=== PATIENT | female | born 1965 | race Caucasian/White ===

== ENCOUNTER → 2020-06-13 09:47 | Outpatient (BNVA) | payer BC, SELFPAY | PROVIDERS: Visit Provider Family Medicine | DX: R25.2 Cramp and spasm (principal); Z13.6 Encounter for screening for cardiovascular disorders; K21.9 Gastro-esophageal reflux disease without esophagitis | CPT/HCPCS: 80053; 80061; 85025 ==

== ENCOUNTER → 2020-07-10 10:19 | Outpatient (BNVA) | payer BC, SELFPAY | PROVIDERS: Visit Provider Family Medicine | DX: Z01.419 Encounter for gynecological examination (general) (routine) without abnormal findings (principal); L57.0 Actinic keratosis; J01.10 Acute frontal sinusitis, unspecified; Z12.31 Encounter for screening mammogram for malignant neoplasm of breast; Z68.28 Body mass index [BMI] 28.0-28.9, adult; Z71.89 Other specified counseling | CPT/HCPCS: 87070; 87205 ==

== ENCOUNTER 2020-09-08 10:12 | Outpatient (CLI) | payer BC, SELFPAY ==
--- NOTE | 2020-09-08 10:30 | MM_ITS ---
WS: [id number] BILATERAL DIGITAL SCREENING MAMMOGRAPHY WITH CAD CLINICAL INFORMATION: screening mammogram HISTORY: Screening mammogram. No current complaints. COMPARISON: None. TECHNIQUE: Bilateral CC and MLO views. FINDINGS: Scattered fibroglandular densities bilaterally. No suspicious focal mass, asymmetry, calcifications, or architectural distortion. No evidence of malignancy. MM/[place] [id number] IMPRESSION: BI-RADS: 1-Negative FOLLOW UP: 1 Year Follow-up Recommend return to annual screening mammography.
== END 2020-09-08 10:13 | disposition home or self-care (01) ==
LOC: RADSHAW 10:15
PROVIDERS: PCP Family Medicine; Visit Provider Family Medicine
DX: Z12.31 Encounter for screening mammogram for malignant neoplasm of breast (principal)
CPT/HCPCS: 77067

== ENCOUNTER 2022-04-05 10:31 | Outpatient (CLI) | payer BC, SELFPAY ==
--- NOTE | 2022-04-05 10:42 | XR_ITS ---
WS: [id number] Exam: XR knee LT 3V* [id number] Date/Time of Exam: 04/05/2022 10:42 AM Reason For Exam: chronic left knee pain There is moderate degenerative change at the medial joint compartment and the patellofemoral joint. N o fracture or dislocation. No significant joint effusion. Spurring of the posterior patella. XR/XR knee LT 3V* [id number] IMPRESSION: 1. Moderate degenerative changes involving the patellofemoral joint and the med ial joint compartment. 2. No acute fracture or joint effusion.
== END 2022-04-05 10:32 | disposition home or self-care (01) ==
LOC: RAD 10:32
PROVIDERS: PCP Family Medicine; Visit Provider Family Medicine
DX: M25.562 Pain in left knee (principal); G89.29 Other chronic pain
CPT/HCPCS: 73562

== ENCOUNTER 2022-04-21 09:28 | Outpatient (RCR) | payer BC, SELFPAY | END 2022-04-21 23:59 | disposition home or self-care (01) | LOC: SPT 09:28 | PROVIDERS: PCP Family Medicine; Visit Provider Family Medicine | DX: M25.362 Other instability, left knee (principal) | CPT/HCPCS: 97161 ==

== ENCOUNTER 2022-04-22 06:00 | Outpatient (RCR) | payer BC, SELFPAY | END 2022-05-21 23:59 | disposition home or self-care (01) | LOC: SPT 06:00 | PROVIDERS: PCP Family Medicine; Visit Provider Family Medicine | DX: M25.362 Other instability, left knee (principal) | CPT/HCPCS: 97110 ==

== ENCOUNTER → 2022-09-28 08:48 | Outpatient (BNVA) | payer BC, SELFPAY | PROVIDERS: PCP Family Medicine; Visit Provider Family Medicine | DX: Z13.6 Encounter for screening for cardiovascular disorders (principal) | CPT/HCPCS: 80053; 80061; 84443; 85025 ==

== ENCOUNTER 2022-09-28 11:00 | Outpatient (CLI) | payer BC, SELFPAY ==
--- NOTE | 2022-09-28 11:30 | XRR_ITS ---
PROCEDURE INFORMATION: Exam: XR Lumbosacral Spine Exam date and time: 09/28/2022 11:50 AM Age: 56 years old Clinical indication: Prior surgery; Surgery type: Hystero; Patient HX: Low back pain chronic 1993 injury; Additional info: Acute low back TECHNIQUE: Imaging protocol: Radiologic exam of the lumbosacral spine. Views: 2 or 3 views. COMPARISON: No relevant prior studies available. FINDINGS: Bones/joints: There is grade 1 spondylolisthesis L4-L5 that is likely longstanding. There are moderate-advanced degenerative changes L5-S1 with disc space narrowing endplate sclerosis and facet arthrosis. There are less pronounced degenerative changes at L4-L5. Remaining lumbar disc levels are unremarkable. There are anterior degenerative endplate changes in the lower thoracic spine partially visualized. Soft tissues: Unremarkable. XR/XR lumbar spine 2-3V* [id number] IMPRESSION: 1. Degenerative changes lower lumbar spine most pronounced at L5-S1. Additional anterior degenerative endplate changes lower thoracic spine. 2. Grade 1 spondylolisthesis L4-L5.
== END 2022-09-28 11:01 | disposition home or self-care (01) ==
LOC: RAD 11:01
PROVIDERS: PCP Family Medicine; Visit Provider Family Medicine
DX: M54.50 Low back pain, unspecified (principal); M43.16 Spondylolisthesis, lumbar region
CPT/HCPCS: 72100

== ENCOUNTER 2022-10-05 09:00 | Outpatient (CLI) | payer BC, SELFPAY ==
--- NOTE | 2022-10-05 09:07 | MM_ITS ---
WS: [id number] BILATERAL SCREENING DIGITAL TOMOSYNTHESIS MAMMOGRAM WITH CAD HISTORY: screening mammogram COMPARISON: 09/08/2020 Bilateral CC and MLO views with tomosynthesis and synthetic mammography submitted. Computer aided det ection analyzed. Breast composition: The breasts are heterogeneously dense, which may obscure small masses. No suspici ous masses, microcalcifications or architectural distortion. MM/[place] [id number] IMPRESSION: BI-RADS: 1-Negative FOLLOW UP: 1 Year Follow-up
== END 2022-10-05 09:01 | disposition home or self-care (01) ==
LOC: RAD 09:00
PROVIDERS: PCP Family Medicine; Visit Provider Family Medicine
DX: Z12.31 Encounter for screening mammogram for malignant neoplasm of breast (principal)
CPT/HCPCS: 73630; 77063; 77067; 80053; 80061; 84443; 85025

== ENCOUNTER 2022-12-08 11:58 | Outpatient (RCR) | payer BC, SELFPAY | END 2022-12-19 23:59 | disposition home or self-care (01) | LOC: SPT 11:58 | PROVIDERS: PCP Family Medicine; Visit Provider Family Medicine | DX: M54.42 Lumbago with sciatica, left side (principal); M54.41 Lumbago with sciatica, right side | CPT/HCPCS: 97110; 97161 ==

== ENCOUNTER 2022-12-22 11:41 | Outpatient (RCR) | payer BC, SELFPAY | END 2023-01-11 23:59 | disposition home or self-care (01) | LOC: SPT 11:41 | PROVIDERS: PCP Family Medicine; Visit Provider Family Medicine | DX: M54.42 Lumbago with sciatica, left side (principal); M54.41 Lumbago with sciatica, right side | CPT/HCPCS: 97110; G0283 ==

== ENCOUNTER → 2023-06-10 12:04 | Outpatient (BNVA) | payer BC, SELFPAY | PROVIDERS: PCP Family Medicine; Visit Provider Family Medicine | DX: E78.5 Hyperlipidemia, unspecified (principal); J45.909 Unspecified asthma, uncomplicated | CPT/HCPCS: 80053; 80061 ==

== ENCOUNTER 2023-08-01 10:52 | Outpatient (CLI) | payer BC, SELFPAY ==
--- NOTE | 2023-08-01 10:55 | XR_ITS ---
WS: [id number] Exam: XR chest 2V* [id number] Date/Time of Exam: 08/01/2023 10:59 AM Reason For Exam: chronic cough No priors. The lungs are clear and fully inflated. Normal cardiomediastinal silhouette. No pleural effusions. Benny ny structures are intact. Mild levoscoliosis and degenerative change of the upper T-spine. IMPRESSION: 1. No acute cardiopulmonary finding.
== END 2023-08-01 10:53 | disposition home or self-care (01) ==
LOC: RAD 10:52
PROVIDERS: PCP Family Medicine; Visit Provider Family Medicine
DX: R05.3 Chronic cough (principal)
CPT/HCPCS: 71046

== ENCOUNTER → 2023-09-16 13:17 | Outpatient (BNVA) | payer BC, SELFPAY | PROVIDERS: PCP Family Medicine; Visit Provider Family Medicine | DX: R53.83 Other fatigue (principal); M25.50 Pain in unspecified joint; Z13.6 Encounter for screening for cardiovascular disorders | CPT/HCPCS: 80053; 84439; 84443; 85025; 85651; 86038; 86140; 86200; 86431 ==

== ENCOUNTER → 2023-10-24 10:12 | Outpatient (BNVA) | payer BC, SELFPAY | PROVIDERS: PCP Family Medicine; Visit Provider Internal Medicine Pulmonary Disease | DX: R06.02 Shortness of breath (principal) | CPT/HCPCS: 36415; 82785; 86003 ==

== ENCOUNTER 2023-11-09 06:59 | Outpatient (CLI) | payer BC, SELFPAY | END 2023-11-09 07:00 | disposition home or self-care (01) | PROVIDERS: PCP Family Medicine; Visit Provider Internal Medicine Pulmonary Disease | DX: J45.909 Unspecified asthma, uncomplicated (principal) | CPT/HCPCS: 94010; 94726; 94729 ==

== ENCOUNTER → 2024-02-21 10:00 | Outpatient (BNVA) | payer BC, SELFPAY | PROVIDERS: PCP Family Medicine; Visit Provider Internal Medicine Rheumatology | DX: Z79.899 Other long term (current) drug therapy (principal); M19.90 Unspecified osteoarthritis, unspecified site | CPT/HCPCS: 36415; 72202; 73130; 73630; 80076; 82306; 82565; 83520; 85025; 85651; 86140; 86480; 86704; 86803; 86812; 87340 ==

== ENCOUNTER 2024-03-29 13:54 | Outpatient (CLI) | payer BC, SELFPAY ==
[2024-03-29 14:32] LABS: Basophils % 0.6 %; Eosinophils # 0.1 10^3/uL (0.0-0.8); Eosinophils % 0.7 %; Hematocrit 43.6 % (36-47); Lymphocytes % 27.6 %; Mean Corpuscular HGB Conc 31.9 g/dL (30-55); Mean Corpuscular Hemoglobin 28.1 pg (27-33); Mean Corpuscular Volume 88.1 fl (85-98); Mean Platelet Volume 9.7 fL (7.4-10.4); Monocytes # 0.6 10^3/uL (0.2-0.9); Monocytes % 8.4 %; Neutrophils # 4.48 10^3/uL (1.8-7.7); Neutrophils % 62.4 %; Nucleated Red Blood Cells % 0 %; Platelet Count 233 10^3/cmm (157-399); Red Blood Count 4.95 10^6/uL (3.85-5.65); Red Cell Distribution Width 13.5 % (12.1-15.1); White Blood Count 7.17 10^3/uL (3.29-11.43)
[2024-03-29 14:45] LABS: Erythrocyte Sedimentation Rate 7 mm/hr (0-15)
[2024-03-29 14:50] LABS: Alanine Aminotransferase 34 U/L (0-33); Albumin Level 4.6 g/dL (3.5-5.2); Alkaline Phosphatase 66 U/L (35-105); Aspartate Amino Transferase 21 U/L (0-32); Globulin 2.8 g/dL (1.3-4.6); Glomerular Filtration Rate 73.7 mL/min (90-130); Total Bilirubin 0.4 mg/dL (0.15-1.2); Total Protein 7.4 g/dL (6.6-8.7)
== END 2024-03-29 13:55 | disposition home or self-care (01) ==
LOC: LAB 13:59
PROVIDERS: Absent Provider Family Medicine Adult Medicine; PCP Family Medicine; Visit Provider Internal Medicine Rheumatology
DX: Z79.899 Other long term (current) drug therapy (principal); M19.90 Unspecified osteoarthritis, unspecified site
CPT/HCPCS: 36415; 80076; 82565; 85025; 85651; 86140

== ENCOUNTER 2024-07-26 10:40 | Outpatient (CLI) | payer BC, SELFPAY ==
[2024-07-26 11:29] LABS: Basophils % 0.3 %; Eosinophils % 0.2 %; Hematocrit 41.8 % (36-47); Lymphocytes # 1.4 10^3/uL (0.8-4.8); Lymphocytes % 14.8 %; Mean Corpuscular HGB Conc 31.1 g/dL (30-55); Mean Corpuscular Hemoglobin 28.4 pg (27-33); Mean Corpuscular Volume 91.5 fl (85-98); Mean Platelet Volume 10.1 fL (7.4-10.4); Monocytes # 0.4 10^3/uL (0.2-0.9); Monocytes % 4.4 %; Neutrophils # 7.56 10^3/uL (1.8-7.7); Neutrophils % 79.9 %; Nucleated Red Blood Cells % 0 %; Platelet Count 262 10^3/cmm (157-399); Red Blood Count 4.57 10^6/uL (3.85-5.65); Red Cell Distribution Width 14.6 % (12.1-15.1); White Blood Count 9.47 10^3/uL (3.29-11.43)
[2024-07-26 11:40] LABS: Erythrocyte Sedimentation Rate 5 mm/hr (0-15)
[2024-07-26 11:49] LABS: Alanine Aminotransferase 33 U/L (0-33); Albumin Level 4.6 g/dL (3.5-5.2); Alkaline Phosphatase 61 U/L (35-105); Aspartate Amino Transferase 22 U/L (0-32); Globulin 2.7 g/dL (1.3-4.6); Glomerular Filtration Rate 73.7 mL/min (90-130); Total Bilirubin 0.5 mg/dL (0.15-1.2); Total Protein 7.3 g/dL (6.6-8.7)
== END 2024-07-26 10:41 | disposition home or self-care (01) ==
LOC: LAB 10:41
PROVIDERS: PCP Family Medicine; Visit Provider Internal Medicine Rheumatology
DX: Z79.899 Other long term (current) drug therapy (principal); M19.90 Unspecified osteoarthritis, unspecified site
CPT/HCPCS: 36415; 80076; 82565; 85025; 85651; 86140

== ENCOUNTER 2024-09-10 09:19 | Outpatient (CLI) | payer BC, SELFPAY ==
--- NOTE | 2024-09-10 09:26 | US_ITS ---
WS: [id number] DIAGNOSTIC BILATERAL DIGITAL BREAST TOMOSYNTHESIS MAMMOGRAPHY WITH CAD RIGHT breast ultrasound, limited HISTORY: lump R breast COMPARISON: 10/05/2022, 09/08/2020, TECHNIQUE: Bilateral craniocaudad, mediolateral oblique, and mediolateral views are submitted with to mosynthesis and SM. Computer aided detection utilized. Breast composition: There are scattered areas of fibroglandular density. Triangular marker is placed posterior to the RIGHT nipple and just lateral to the nipple line. There is no underlying mass identified with the palpable marker. There are a few scattered areas of asymmet ry within each breast which are stable. Benign lymph node in the retroglandular fat LEFT breast. No n ew or developing asymmetry or suspicious finding. RIGHT breast ultrasound, limited. No abnormalities associated with the palpable marker over the centr al breast. US/US breast RT limited* [id number] IMPRESSION: BI-RADS: 2 - Benign. FOLLOW UP: 1 Year Follow-up
--- NOTE | 2024-09-10 10:00 | MM_ITS ---
WS: [id number] DIAGNOSTIC BILATERAL DIGITAL BREAST TOMOSYNTHESIS MAMMOGRAPHY WITH CAD RIGHT breast ultrasound, limited HISTORY: lump R breast COMPARISON: 10/05/2022, 09/08/2020, TECHNIQUE: Bilateral craniocaudad, mediolateral oblique, and mediolateral views are submitted with to mosmay and SM. Computer aided detection utilized. Breast composition: There are scattered areas of fibroglandular density. Triangular marker is placed posterior to the RIGHT nipple and just lateral to the nipple line. There is no underlying mass identified with the palpable marker. There are a few scattered areas of asymmet ry within each breast which are stable. Benign lymph node in the retroglandular fat LEFT breast. No n ew or developing asymmetry or suspicious finding. RIGHT breast ultrasound, limited. No abnormalities associated with the palpable marker over the centr al breast. MM/MM diag BI tomosynthesis [id number] IMPRESSION: BI-RADS: 2 - Benign. FOLLOW UP: 1 Year Follow-up
== END 2024-09-10 09:20 | disposition home or self-care (01) ==
PROVIDERS: PCP Family Medicine; Visit Provider Family Medicine
DX: N64.4 Mastodynia (principal); R92.323 Mammographic fibroglandular density, bilateral breasts; N64.89 Other specified disorders of breast; R59.0 Localized enlarged lymph nodes
CPT/HCPCS: 76642; 77062; G0279

== ENCOUNTER → 2024-10-16 16:24 | Outpatient (BNVA) | payer BC, SELFPAY | PROVIDERS: PCP Family Medicine; Visit Provider Internal Medicine Rheumatology | DX: L40.50 Arthropathic psoriasis, unspecified (principal); Z79.899 Other long term (current) drug therapy | CPT/HCPCS: 36415; 80076; 82565; 85025; 85651; 86140 ==

== ENCOUNTER → 2024-12-11 11:36 | Outpatient (BNVA) | payer BC, SELFPAY | PROVIDERS: PCP Family Medicine; Visit Provider Family Medicine | DX: N17.9 Acute kidney failure, unspecified (principal) | CPT/HCPCS: 80048 ==

== ENCOUNTER 2025-04-03 08:03 | Outpatient (CLI) | payer BC, SELFPAY ==
[2025-04-03 10:12] LABS: Hematocrit 39.1 % (36-47); Hemoglobin 12.70 g/dL (11.27-16.99); Mean Corpuscular HGB Conc 32.5 g/dL (30-55); Mean Corpuscular Hemoglobin 29.7 pg (27-33); Mean Corpuscular Volume 91.6 fl (85-98); Nucleated Red Blood Cells % 0 %; Platelet Count 225 10^3/cmm (157-399); Red Blood Count 4.27 10^6/uL (3.85-5.65); White Blood Count 5.89 10^3/uL (3.29-11.43)
[2025-04-03 10:29] LABS: Alanine Aminotransferase 24 U/L (0-33); Albumin Level 4.6 g/dL (3.5-5.2); Alkaline Phosphatase 86 U/L (35-105); Aspartate Amino Transferase 21 U/L (0-32); Globulin 2.3 g/dL (1.3-4.6); Total Protein 6.9 g/dL (6.6-8.7)
== END 2025-04-03 08:04 | disposition home or self-care (01) ==
LOC: LAB 08:05
PROVIDERS: PCP Family Medicine; Visit Provider Internal Medicine Rheumatology
DX: L40.50 Arthropathic psoriasis, unspecified (principal); Z79.899 Other long term (current) drug therapy
CPT/HCPCS: 36415; 80076; 82306; 82565; 85025; 85651; 86140

== ENCOUNTER 2025-07-29 09:52 | Outpatient (CLI) | payer BC, SELFPAY ==
[2025-07-29 10:27] LABS: Hematocrit 41.3 % (36-47); Hemoglobin 13.10 g/dL (11.27-16.99); Mean Corpuscular HGB Conc 31.7 g/dL (30-55); Mean Corpuscular Hemoglobin 28.9 pg (27-33); Mean Corpuscular Volume 91.0 fl (85-98); Nucleated Red Blood Cells % 0 %; Platelet Count 241 10^3/cmm (157-399); Red Blood Count 4.54 10^6/uL (3.85-5.65); White Blood Count 7.02 10^3/uL (3.29-11.43)
[2025-07-29 10:50] LABS: Alanine Aminotransferase 25 U/L (0-33); Albumin Level 4.7 g/dL (3.5-5.2); Alkaline Phosphatase 72 U/L (35-105); Aspartate Amino Transferase 20 U/L (0-32); Globulin 2.4 g/dL (1.3-4.6); Total Protein 7.1 g/dL (6.6-8.7)
== END 2025-07-29 09:53 | disposition home or self-care (01) ==
LOC: LAB 09:53
PROVIDERS: PCP Family Medicine; Visit Provider Internal Medicine Rheumatology
DX: L40.0 Psoriasis vulgaris (principal); Z79.899 Other long term (current) drug therapy; L40.50 Arthropathic psoriasis, unspecified
CPT/HCPCS: 80076; 82565; 85025; 85651; 86140; 86480